=== PATIENT | male | born 1980 | race African-American/Black ===

== ENCOUNTER 2017-08-21 08:40 | Emergency (ER) | payer BC ==
[2017-08-21] MEDS: morphine 4 MG/ML VIAL IV (09:01)
[2017-08-21] MEDS: ONDANSETRON 4 MG INJ IV (09:02)
[2017-08-21] MEDS: KETOROLAC 15 MG INJ IV (09:02)
[2017-08-21] MEDS: SOD CHLORIDE 0.9% 1,000 ML IV (09:03)
[2017-08-21 09:05] LABS: ADD MAN DIFF? NO
[2017-08-21 09:06] LABS: WHITE BLOOD COUNT 6.1 10^3/ul (4.8-10.8)
[2017-08-21 09:06] LABS: BASOPHILS % 0.5 % (0.0-2.0); EOSINOPHILS # 0.1 10^3/ul (0.0-0.5); EOSINOPHILS % 0.8 % (0.0-7.0); HEMATOCRIT 43.6 % (42.0-52.0); HEMOGLOBIN 14.6 g/dl (14.0-18.0); LYMPHOCYTES # 1.6 10^3/ul (0.8-2.9); LYMPHOCYTES % 26.2 % (15.0-51.0); MEAN CORPUSCULAR HEMOGLOBIN 29.9 pg (29.0-33.0); MEAN CORPUSCULAR HGB CONC 33.5 g/dl (32.0-37.0); MEAN CORPUSCULAR VOLUME 89.2 fl (82.0-101.0); MEAN PLATELET VOLUME 10.8 fl (7.4-10.4); MONOCYTE # 0.5 10^3/ul (0.3-0.9); MONOCYTES % 8.1 % (0.0-11.0); NEUTROPHIL # 3.9 10^3/ul (1.6-7.5); NEUTROPHILS % 64.1 % (39.0-77.0); PLATELET COUNT 167 10^3/UL (140-415); RED BLOOD COUNT 4.89 10^6/ul (4.70-6.10); RED CELL DISTRIBUTION WIDTH 13.2 % (11.5-14.5)
[2017-08-21 09:24] LABS: ALANINE AMINOTRANSFERASE 19 IU/L (13-69); ALBUMIN 4.4 g/dl (3.3-4.9); ALBUMIN/GLOBULIN RATIO 1.29; ALKALINE PHOSPHATASE 91 IU/L (42-121); ANION GAP 17 (8-16); ASPARTATE AMINO TRANSFERASE 17 IU/L (15-46); BILIRUBIN,INDIRECT 0.3 mg/dl (0-1.1); BILIRUBIN,TOTAL 0.3 mg/dl (0.2-1.3); BLOOD UREA NITROGEN 14 mg/dl (7-20); CALCIUM 9.4 mg/dl (8.4-10.2); CARBON DIOXIDE 26 mmol/L (21-31); CHLORIDE 107 mmol/L (97-110); CREATININE 1.22 mg/dl (0.61-1.24); GLUCOSE 160 mg/dl (70-220); LIPASE 91 U/L (23-300); POTASSIUM 3.7 mmol/L (3.5-5.1); SODIUM 146 mmol/L (135-144); TOTAL PROTEIN 7.8 g/dl (6.1-8.1)
[2017-08-21 09:37] LABS: TROPONIN-I < 0.012 ng/ml (0.00-0.12)
[2017-08-21 10:20] LABS: ADD UMIC NO; UR ASCORBIC ACID NEGATIVE (NEGATIVE); UR BILIRUBIN (Dip) NEGATIVE (NEGATIVE); UR BLOOD (Dip) NEGATIVE (NEGATIVE); UR CLARITY CLEAR (CLEAR); UR COLOR YELLOW (YELLOW); UR GLUCOSE (Dip) 1+ mg/dL (NEGATIVE); UR KETONES (Dip) NEGATIVE (NEGATIVE); UR LEUKOCYTE ESTERASE (Dip) NEGATIVE Leu/ul (NEGATIVE); UR NITRITE (Dip) NEGATIVE (NEGATIVE); UR SPECIFIC GRAVITY (Dip) 1.014 (1.003-1.030); UR TOTAL PROTEIN (Dip) NEGATIVE (NEGATIVE); UR UROBILINOGEN (Dip) NEGATIVE (NEGATIVE)
== END 2017-08-21 11:05 | disposition home or self-care (01) ==
LOC: E/R 11:05
DX: N20.1 Calculus of ureter (principal); I10 Essential (primary) hypertension; F17.210 Nicotine dependence, cigarettes, uncomplicated
CPT/HCPCS: 36415; 74176; 80053; 81003; 83690; 84484; 85025; 93005; 96374; 96375; 99285-25

== ENCOUNTER 2017-08-23 21:02 | Inpatient (IN) | payer BC ==
[2017-08-23] MEDS: KETOROLAC 15 MG INJ IV (21:39)
[2017-08-23] MEDS: morphine 4 MG/ML VIAL IV (21:39)
[2017-08-23] MEDS: SOD CHLORIDE 0.9% 1,000 ML IV (21:40)
[2017-08-23] MEDS: ONDANSETRON 4 MG INJ IV (21:40)
[2017-08-23 22:09] LABS: ADD MAN DIFF? NO
[2017-08-23 22:11] LABS: BASOPHILS % 0.1 % (0.0-2.0); EOSINOPHILS % 0.1 % (0.0-7.0); HEMATOCRIT 35.1 % (42.0-52.0); HEMOGLOBIN 11.7 g/dl (14.0-18.0); LYMPHOCYTES % 13.8 % (15.0-51.0); MEAN CORPUSCULAR HEMOGLOBIN 30.1 pg (29.0-33.0); MEAN CORPUSCULAR HGB CONC 33.3 g/dl (32.0-37.0); MEAN CORPUSCULAR VOLUME 90.2 fl (82.0-101.0); MEAN PLATELET VOLUME 11.4 fl (7.4-10.4); MONOCYTE # 0.8 10^3/ul (0.3-0.9); MONOCYTES % 10.1 % (0.0-11.0); NEUTROPHIL # 5.7 10^3/ul (1.6-7.5); NEUTROPHILS % 75.6 % (39.0-77.0); PLATELET COUNT 150 10^3/UL (140-415); RED BLOOD COUNT 3.89 10^6/ul (4.70-6.10)
[2017-08-23 22:11] LABS: WHITE BLOOD COUNT 7.5 10^3/ul (4.8-10.8)
[2017-08-23 22:30] LABS: ALANINE AMINOTRANSFERASE 21 IU/L (13-69); ALBUMIN 4.6 g/dl (3.3-4.9); ALBUMIN/GLOBULIN RATIO 1.24; ALKALINE PHOSPHATASE 87 IU/L (42-121); ANION GAP 17 (8-16); ASPARTATE AMINO TRANSFERASE 20 IU/L (15-46); BILIRUBIN,INDIRECT 0.5 mg/dl (0-1.1); BILIRUBIN,TOTAL 0.5 mg/dl (0.2-1.3); BLOOD UREA NITROGEN 15 mg/dl (7-20); CALCIUM 9.6 mg/dl (8.4-10.2); CARBON DIOXIDE 28 mmol/L (21-31); CHLORIDE 99 mmol/L (97-110); CREATININE 2.02 mg/dl (0.61-1.24); GLUCOSE 109 mg/dl (70-220); LIPASE 35 U/L (23-300); POTASSIUM 3.6 mmol/L (3.5-5.1); SODIUM 140 mmol/L (135-144); TOTAL PROTEIN 8.3 g/dl (6.1-8.1)
[2017-08-23 23:52] LABS: ADD UMIC YES; UR ASCORBIC ACID NEGATIVE (NEGATIVE); UR BILIRUBIN (Dip) NEGATIVE (NEGATIVE); UR BLOOD (Dip) 2+ mg/dL (NEGATIVE); UR CLARITY CLEAR (CLEAR); UR COLOR YELLOW (YELLOW); UR GLUCOSE (Dip) NEGATIVE (NEGATIVE); UR KETONES (Dip) 1+ mg/dL (NEGATIVE); UR LEUKOCYTE ESTERASE (Dip) NEGATIVE Leu/ul (NEGATIVE); UR NITRITE (Dip) NEGATIVE (NEGATIVE); UR RBC 16 /HPF (0-5); UR SPECIFIC GRAVITY (Dip) 1.014 (1.003-1.030); UR TOTAL PROTEIN (Dip) NEGATIVE (NEGATIVE); UR UROBILINOGEN (Dip) NEGATIVE (NEGATIVE); UR WBC 2 /HPF (0-5)
[2017-08-24] MEDS ORDERED: OXYCODONE/ACETAMINOPHEN (5/325) TAB PO (01:00)
[2017-08-24] MEDS ORDERED: NACL 0.9% 3 ML SYG IV (01:00)
[2017-08-24] MEDS ORDERED: ACETAMINOPHEN 325 MG TAB PO ×2 (01:00)
[2017-08-24] MEDS: OXYCODONE/ACETAMINOPHEN (5/325) TAB PO (01:25)
[2017-08-24] MEDS: SOD CHLORIDE 0.9% 1,000 ML IV ×3 (01:48→20:46)
[2017-08-24] MEDS: hydrALAzine 20 MG INJ IV ×2 (02:29→20:54)
[2017-08-24] MEDS: morphine 2 MG INJ IV ×6 (02:53→20:57)
[2017-08-24] MEDS: PANTOPRAZOLE (EC) 40 MG TAB PO (07:53)
[2017-08-24] MEDS: ONDANSETRON 4 MG INJ IV ×2 (07:53→16:44)
[2017-08-24] MEDS ORDERED: LISINOPRIL 20 MG TAB PO (09:00)
[2017-08-24] MEDS: TAMSULOSIN (SR) 0.4 MG CAP PO ×2 (09:19→20:46)
[2017-08-24] MEDS: CEFTRIAXONE 1 GM/50 ML (PMX) 50 ML IVPB (12:37)
[2017-08-24] MEDS: DOCUSATE SODIUM 100 MG CAP PO (20:45)
[2017-08-24] MEDS: POLYETHYLENE GLYCOL 17 GM PACKET PO (20:45)
[2017-08-24] MEDS: METOCLOPRAMIDE 10 MG INJ IV (22:08)
[2017-08-25] MEDS: morphine 2 MG INJ IV (00:34)
[2017-08-25] MEDS: ONDANSETRON 4 MG INJ IV ×2 (00:42→08:41)
[2017-08-25] MEDS: HYDROmorphONE 0.5 MG/0.5 ML SYG IV ×4 (02:12→16:48)
[2017-08-25] MEDS: hydrALAzine 20 MG INJ IV ×2 (04:02→14:51)
[2017-08-25] MEDS: SOD CHLORIDE 0.9% 1,000 ML IV ×2 (04:46→16:57)
[2017-08-25] MEDS: METOCLOPRAMIDE 10 MG INJ IV (05:50)
[2017-08-25 06:46] LABS: ADD MAN DIFF? NO
[2017-08-25 06:50] LABS: WHITE BLOOD COUNT 7.6 10^3/ul (4.8-10.8)
[2017-08-25 06:50] LABS: BASOPHILS % 0.3 % (0.0-2.0); EOSINOPHILS % 0.1 % (0.0-7.0); HEMOGLOBIN 13.6 g/dl (14.0-18.0); LYMPHOCYTES # 1.3 10^3/ul (0.8-2.9); MEAN CORPUSCULAR HEMOGLOBIN 30.2 pg (29.0-33.0); MEAN CORPUSCULAR VOLUME 88.7 fl (82.0-101.0); MEAN PLATELET VOLUME 11.9 fl (7.4-10.4); MONOCYTE # 0.9 10^3/ul (0.3-0.9); MONOCYTES % 11.6 % (0.0-11.0); NEUTROPHIL # 5.4 10^3/ul (1.6-7.5); NEUTROPHILS % 70.7 % (39.0-77.0); PLATELET COUNT 169 10^3/UL (140-415); RED BLOOD COUNT 4.51 10^6/ul (4.70-6.10); RED CELL DISTRIBUTION WIDTH 13.1 % (11.5-14.5)
[2017-08-25 07:27] LABS: INR 1.01; PARTIAL THROMBOPLASTIN TIME 31.1 Sec (25.0-35.0); PROTIME 13.4 Sec (11.9-14.9)
[2017-08-25 07:44] LABS: ANION GAP 15 (8-16); BLOOD UREA NITROGEN 13 mg/dl (7-20); CALCIUM 8.8 mg/dl (8.4-10.2); CARBON DIOXIDE 25 mmol/L (21-31); CHLORIDE 105 mmol/L (97-110); CREATININE 1.73 mg/dl (0.61-1.24); GLUCOSE 121 mg/dl (70-220); MAGNESIUM 1.9 mg/dl (1.7-2.5); PHOSPHORUS 3.1 mg/dl (2.5-4.9); POTASSIUM 3.7 mmol/L (3.5-5.1); SODIUM 141 mmol/L (135-144)
[2017-08-25 07:57] LABS: HEMOGLOBIN A1C 5.4 % (0-5.9)
[2017-08-25 08:00] LABS: CHOL/HDL RATIO 3.4 RATIO; HDL CHOLESTEROL 49 mg/dl (28-63); LDL CHOLESTEROL,CALCULATED 106 mg/dl; TRIGLYCERIDES 75 mg/dl (0-149)
[2017-08-25 08:00] LABS: CHOLESTEROL 170 mg/dl (100-200)
[2017-08-25 08:10] LABS: FREE T4 (FREE THYROXINE) 1.49 ng/dl (0.79-2.35)
[2017-08-25 08:23] LABS: THYROID STIMULATING HORMONE 0.614 MIU/L (0.465-4.680)
[2017-08-25] MEDS: POLYETHYLENE GLYCOL 17 GM PACKET PO ×2 (08:41→09:00)
[2017-08-25] MEDS: TAMSULOSIN (SR) 0.4 MG CAP PO (08:42)
[2017-08-25] MEDS: PANTOPRAZOLE (EC) 40 MG TAB PO (08:42)
[2017-08-25] MEDS: CEFTRIAXONE 1 GM/50 ML (PMX) 50 ML IVPB (12:14)
[2017-08-25] MEDS ORDERED: PROPOFOL 20 ML ×2 (19:24→22:50)
[2017-08-25] MEDS ORDERED: METOCLOPRAMIDE 10 MG INJ (19:24)
[2017-08-25] MEDS ORDERED: FENTAnyl 50 MCG/ML VIAL (19:24)
[2017-08-25] MEDS ORDERED: ONDANSETRON 4 MG INJ (19:24)
[2017-08-25] MEDS ORDERED: MIDAZOLAM 1 MG/ML 2 ML INJ (19:24)
[2017-08-25] MEDS ORDERED: HYDROmorphONE 2 MG/ML SYG (19:26)
[2017-08-25] MEDS ORDERED: HYDROmorphONE (0.2 MG/ML) 10ML SYG IV ×2 (19:30)
[2017-08-25] MEDS ORDERED: hydrALAzine 20 MG INJ IV (19:30)
[2017-08-25] MEDS ORDERED: ONDANSETRON 4 MG INJ IV (19:30)
[2017-08-25] MEDS ORDERED: DIPHENHYDRAMINE 50 MG INJ IV (19:30)
[2017-08-25] MEDS ORDERED: METOCLOPRAMIDE 10 MG INJ IV (19:30)
[2017-08-25] MEDS ORDERED: MEPERIDINE 25 MG INJ IV (19:30)
[2017-08-25] MEDS ORDERED: METOPROLOL 5 MG INJ (19:43)
[2017-08-25] MEDS ORDERED: ROCURONIUM 50 MG INJ (19:44)
[2017-08-25] MEDS ORDERED: SUCCINYLCHOLINE CHLORIDE 100 MG/5 ML SYG IV (19:44)
[2017-08-25] MEDS: LABETALOL HCL 20MG INJ IV ×3 (21:22→21:33)
[2017-08-25] MEDS: HYDROmorphONE (0.2 MG/ML) 10ML SYG IV ×2 (21:26→22:22)
[2017-08-26] MEDS: TAMSULOSIN (SR) 0.4 MG CAP PO ×2 (00:11→09:07)
[2017-08-26] MEDS: POLYETHYLENE GLYCOL 17 GM PACKET PO ×2 (00:21→09:07)
[2017-08-26] MEDS: ONDANSETRON 4 MG INJ IV (00:31)
[2017-08-26] MEDS: HYDROmorphONE 0.5 MG/0.5 ML SYG IV (02:12)
[2017-08-26] MEDS: SOD CHLORIDE 0.9% 1,000 ML IV ×2 (02:12→12:49)
[2017-08-26] MEDS: PANTOPRAZOLE (EC) 40 MG TAB PO (09:07)
[2017-08-26] MEDS: CEFTRIAXONE 1 GM/50 ML (PMX) 50 ML IVPB (12:51)
== END 2017-08-26 17:22 | disposition home or self-care (01) | DRG 669 ==
LOC: PP2 08-24 00:39 → E/R 21:02
PROC: 0T768DZ Dilation of Right Ureter with Intraluminal Device, Via Natural or Artificial Opening Endoscopic (ICD-10-PCS; principal; 2017-08-25 17:30)
PROC: 0TC68ZZ Extirpation of Matter from Right Ureter, Via Natural or Artificial Opening Endoscopic (ICD-10-PCS; 2017-08-25 17:30)
DX: N13.2 Hydronephrosis with renal and ureteral calculous obstruction (principal); Z68.41 Body mass index [BMI] 40.0-44.9, adult; R11.2 Nausea with vomiting, unspecified; N17.9 Acute kidney failure, unspecified; I10 Essential (primary) hypertension; E66.01 Morbid (severe) obesity due to excess calories; Z87.891 Personal history of nicotine dependence
CPT/HCPCS: 36415; 71045; 74018; 74430; 80048; 80053; 80061; 81001; 83036; 83690; 83735; 84100; 84439; 84443; 85025; 85610; 85730; 87086; 88300; 96374; 96375; 96376; 99285-25

== ENCOUNTER 2018-11-11 21:36 | Emergency (ER) | payer SELFPAY, BC ==
[2018-11-12 00:02] LABS: URINE BLOOD (Dip) POC 2+ (NEGATIVE); URINE GLUCOSE (Dip) POC Negative (NEGATIVE); URINE KETONES (Dip) POC Negative (NEGATIVE); URINE LEUKOCYTE EST (Dip) POC 2+ (NEGATIVE); URINE NITRITE (Dip) POC Positive (NEGATIVE); URINE TOTAL PROTEIN POC 2+ (NEGATIVE)
[2018-11-12] MEDS: CEFTRIAXONE 1 GM INJ IM (00:24)
[2018-11-12] MEDS: LIDOCAINE 1% (MDV) 20 ML INJ SC (00:25)
== END 2018-11-12 00:47 | disposition home or self-care (01) ==
LOC: FTE 21:36
DX: N39.0 Urinary tract infection, site not specified (principal); F17.210 Nicotine dependence, cigarettes, uncomplicated
CPT/HCPCS: 81003; 87086; 96372; 99284-25